=== PATIENT | female | born 1975 | race Caucasian/White ===

== ENCOUNTER → 2016-12-16 | Outpatient (CLI) | payer BC, OTHER ==
[~2016-12-16] MED LIST: ADULT LOW STREN81 M2 PO; ALPRAZOLAM0.25 MG PO; AMBIEN10 M1 PO; ASPIR-TRIN325 M1 PO; ASPIRIN81 M2 PO; AXERT12.5 MG PO; BACTRIM,SEPT1 TABLET PO; CEFADROXIL500 M1 PO; CHERATUSSIN AC473 ML; CYMBALTA30 MG PO; HYCODAN SYRUP480 ML PO; IMITREX100 MG PO; LEVBID0.375 MG PO; LOPRESSOR50 MG PO; MAXALT MLT10 MG PO; MOBIC15 MG PO; MVI PO; OMEPRAZOLE40 M1 PO; PHENERGAN12.5 M1 PO; PRISTIQ50 MG PO; PROMETHAZINE HC25 M1 PO; PROTONIX40 MG PO; TOPAMAX50 MG PO; TOPROL XL50 MG PO; TROKENDI XR100 MG PO; ULTRAM ER 100100 MG PO; ZOFRAN ODT4 MG PO; ZOFRAN ODT8 MG PO
== END | disposition home or self-care (01) ==
LOC: CDC 16:05
DX: S83.271D Complex tear of lateral meniscus, current injury, right knee, subsequent encounter (principal); M17.11 Unilateral primary osteoarthritis, right knee
CPT/HCPCS: 93000

== ENCOUNTER 2016-12-17 09:24 | Day surgery (SDC) | payer BC, OTHER ==
[~2016-12-17] VITALS: Ht 162.6 cm; Wt 108.9 kg
[2016-12-17 10:17] VITALS: BP 127/75
[2016-12-17 13:40] VITALS: BP 128/71
[2016-12-17 14:40] VITALS: BP 120/62
== END 2016-12-17 15:15 | disposition home or self-care (01) ==
LOC: SDC 09:24
DX: S83.271A Complex tear of lateral meniscus, current injury, right knee, initial encounter (principal); M22.41 Chondromalacia patellae, right knee; M17.11 Unilateral primary osteoarthritis, right knee; I10 Essential (primary) hypertension; F32.9 Major depressive disorder, single episode, unspecified; Z98.84 Bariatric surgery status; G43.909 Migraine, unspecified, not intractable, without status migrainosus; Z90.710 Acquired absence of both cervix and uterus; Z83.2 Family history of diseases of the blood and blood-forming organs and certain disorders involving the immune mechanism; Z82.62 Family history of osteoporosis; Z82.49 Family history of ischemic heart disease and other diseases of the circulatory system; Z80.8 Family history of malignant neoplasm of other organs or systems; X50.1XXA Overexertion from prolonged static or awkward postures, initial encounter; Y93.89 Activity, other specified; Y92.238 Other place in hospital as the place of occurrence of the external cause; Y99.0 Civilian activity done for income or pay
CPT/HCPCS: J0131; J1100; J1885; J2250; J2405; J2765; J2795; J3010; Q0175

== ENCOUNTER 2017-08-04 09:56 | Emergency (ER) | payer OTHER ==
[~2017-08-04] VITALS: Ht 160 cm; Wt 116.8 kg
[2017-08-04 10:34] LABS: BASOPHIL (%) 0.4 % (0-1); EOSINOPHIL (%) 3.2 % (0-5); EOSINOPHIL COUNT 0.2 K/uL (0-0.3); HEMATOCRIT 39.3 % (36.0-46.0); HEMOGLOBIN 13.7 G/DL (11.9-15.5); IMMATURE GRANULOCYTE (%) 0.2 % (0.0-0.7); LYMPHOCYTE (%) 19.8 % (15-42); LYMPHOCYTE COUNT 1.1 K/uL (1.0-2.8); MCH 30.9 PG (29.0-34.0); MCHC 34.9 G/DL (30.0-36.0); MCV 88.7 FL (83-99); MONOCYTE COUNT 0.6 K/uL (0-0.8); NEUTROPHIL (%) 66.4 % (45-76); NEUTROPHIL COUNT 3.7 K/uL (1.8-6.4); PLATELET COUNT 216 K/uL (156-360); RED BLOOD COUNT 4.43 M/uL (3.80-5.20); WHITE BLOOD COUNT 5.6 K/uL (4.1-10.2)
[2017-08-04 10:45] LABS: CHLORIDE 107 mEq/L (99-109); POTASSIUM 3.8 mEq/L (3.7-5.4); SODIUM 137 mEq/L (136-147)
[2017-08-04 10:46] LABS: GLUCOSE 100 mg/dL (70-99)
[2017-08-04 10:50] LABS: CREATININE 0.7 mg/dL (0.6-1.3); GFR ESTIMATE (CALCULATED) > 59 mL/min/
[2017-08-04 10:51] LABS: UREA NITROGEN (BUN) 23 mg/dL (9-23)
[2017-08-04 10:58] LABS: TROP-I INTERPRETATION NEGATIVE; TROPONIN-I < 0.01 ng/mL (0.0-0.30)
[2017-08-04 13:24] VITALS: BP 123/73
== END 2017-08-04 13:28 | disposition home or self-care (01) ==
LOC: EME 09:56
PROVIDERS: Emergency Medicine
DX: R07.89 Other chest pain (principal); D68.51 Activated protein C resistance; G43.919 Migraine, unspecified, intractable, without status migrainosus; F41.9 Anxiety disorder, unspecified; F32.9 Major depressive disorder, single episode, unspecified; Z79.01 Long term (current) use of anticoagulants; Z98.84 Bariatric surgery status; Z98.890 Other specified postprocedural states; Z90.49 Acquired absence of other specified parts of digestive tract; Z90.710 Acquired absence of both cervix and uterus; Z88.5 Allergy status to narcotic agent
CPT/HCPCS: 71045; 71275; 80048; 84484; 85025; 85379; 93005; 93970; 99281; 99285; J7030